=== PATIENT | male | born 1995 | race Caucasian/White ===

== ENCOUNTER → 2018-01-03 | Outpatient (CLI) | payer MEDICAID ==
[~2018-01-03] MED LIST: BUPIVACAINE MPF 0.25% 10 ML VIAL. ONE; IBUP-1027 PO; LIDOCAINE 1% PF 2 ML VIAL. ONE; PROPOFOL 20 ML IV ONE; methylPREDNISolone ACETATE 40 MG/ML VIAL. ONE; methylPREDNISolone ACETATE 80 MG/ML VIAL. ONE
--- NOTE | 2018-01-03 23:46 | PAIN ---
DATE OF SERVICE: 01/03/2018 INITIAL CONSULTATION FOR PAIN CLINIC CHIEF COMPLAINT: Left hip pain. HISTORY OF PRESENT ILLNESS: This is a 22-year-old male who presents with history of pain in the left hip as well as in the bilateral knees essentially since . The patient had a general hip dysplasia and had a spica cast from time of with several surgeries on his knees at about 1-year-old, additional surgeries later in life and a growth plate arrest attempted to right knee to try to equal the leg length. The patient has had severe pain in the left hip with weightbearing motion, standing, walking, especially climbing stairs, stepping up on a step, putting all his weight on his left leg with pain radiating to the left groin, as well as into the gluteus. The patient also has some tightness in the left gluteus and radiating to posterior thigh as well. The patient reports the pain is constant, throbbing, changes during the day with activity, aching, dull, shooting, sharp. The patient reports it awakens him from sleep, maybe once a night in the left side if he is lying on his left side. It does not affect his bowel or bladder control but significantly affects his ability to walk as is his knee pain. The patient has not been on any recent medications. He has been doing exercise. He also has had physical therapy, which was not helpful to decrease the pain in his hips and his knees as well. The patient rates his disability rate from 0 to 10, 10 being the worst, is 8 with family home responsibilities, recreation, social activity, 10 with occupation and 0 in all other categories. The patient reports no significant pain in the right side of the hip but mainly just the left. 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 PAST SURGICAL HISTORY: Previous surgeries include bilateral knee surgeries as a child as noted and hip dislocation on the left side in the past, which was closed reduction. CURRENT MEDICATIONS: Include only ibuprofen [id number] every 6 hours as needed for pain. FAMILY HISTORY: Significant for diabetes, heart disease, cancer and Alzheimer's. SOCIAL HISTORY: The patient does not drink alcohol; does not smoke and does not use any illegal, illicit or recreational drugs. He is single, lives at home with his mother who accompanies him this visit today in [place], [place]. RADIOLOGICAL DATA: The patient's x-ray of the hips showed severe deformity of the left hip with large acetabular shell for overriding and decreased size of his proximal femur, overall severe head deformity, well-maintained right hip joint space however. 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 REVIEW OF SYSTEMS: The patient's review of systems is positive for those items mentioned in history of present illness. All systems are reviewed and otherwise negative. It is complete, full and well documented on the patient's chart. PHYSICAL EXAMINATION: VITAL SIGNS: Today, the patient's blood pressure is 172/107, pulse is 57, respirations 18 and temperature 98.7 degrees Fahrenheit. Height 6 feet 1 inch and weight is 260 pounds. GENERAL: The patient is awake, alert, oriented, appropriate and very pleasant demeanor. The patient is accompanied by his mother. HEENT: Head shows normocephalic and atraumatic. The patient with porter and moustache. Extraocular movements are intact and symmetrical. Oral cavity: Mucous membranes are moist and pink. Dentition is intact. NECK: Shows anterior throat supple without palpable lymphadenopathy noted. Swallow reflex symmetrical. Neck shows full rotational motion of the cervical spine, both laterally as well as extension and flexion without difficulty. CHEST: Shows normal on inspection. Breath sounds clear to auscultation bilaterally. HEART: Shows S1 and S2 clear. No murmurs auscultated. ABDOMEN: Soft, nontender and nondistended. No palpable organomegaly is noted. No rebound or guarding demonstrated. BACK: Shows spine grossly in the midline. Slight exaggeration of the thoracic kyphosis and some mild flattening of the lumbar lordotic curvature. Lumbar paraspinous muscle shows symmetrical on inspection, on palpation shows moderate tenderness but only diffusely in the low lumbar distribution. No significant tenderness over the sacroiliac regions or the spinous processes or the sacrum. The patient has good rotational motion of the lumbar spine, both laterally greater than 10 degrees, right and left as well as extension greater than 10 degrees, forward flexed at 45 degrees without significant pain reported. EXTREMITIES: Lower extremities show deep tendon reflexes at 1+ in the patellar and tendo-calcaneus tendons. Motor exam is approximately 4 on a scale of 5 with dorsiflexion and extension but equal and symmetrical. Peripheral pulses are 1+ posterior tibia. No peripheral edema is noted bilaterally. Lower extremities are warm and dry to touch, equal in color and appearance. The patient has some surgical scarring noted on the knees as well as on the left lateral thigh. The patient's ability to stand is good with help from the arms of the chair. The patient has had significant antalgic gait, appears to limp and favor the left lower extremity significantly, not using any assistive devices to ambulate. The patient's skin shows warm and dry, good turgor. No edema. No sores, rashes or bruising. IMPRESSION: 1. This is a 22-year-old male with left hip pain since , essentially with hip dysplasia and significant pain with degenerative changes as noted. 2. Plain films of the left hip as noted. 3. History of migraine headaches. PLAN: Options were discussed with the patient and the patient's mother in detail regarding conservative medical treatment, physical therapy, interventional techniques and he would like to pursue interventional techniques. His insurance provider will only approve him for intramuscular injections. The patient does have some tenderness in the left posterior gluteus consistent with trigger point area of tenderness but without significant radiation and he would like to proceed with a trigger point injection in that and we will proceed with that today. The patient would potentially benefit from Synvisc or Monovisc injection into the left intra-articular hip joint; however, with his current insurance provider, this is not covered nor is a cortisone injection, which he has had in the past without significant help and we did some extensive research with his insurance provider today and they will not cover an intraarticular injection. The patient does not want to pay for this out of pocket. We will go ahead with an intramuscular injection, trigger point injection of the left gluteus. Risks were discussed including but not limited to bleeding, infection, possibility of intravascular injection sequelae, spread of local anesthetic and numbness, side effects of steroid medication and poor results regarding pain control. The patient understands and wished to proceed. The patient will return to the clinic in approximately 2 weeks for followup, was counseled as to return appointment, activity level and side effects to be aware of. The patient will also follow up with his orthopedist as scheduled. DIAGNOSIS: Myofascial pain, left gluteus. PROCEDURE: Trigger point injection, left gluteus under sterile prep and drape using local anesthetic. MEDICATION INJECTED: A total of 120 mg Depo-Medrol plus 3 mL of 0.25% bupivacaine after negative aspiration. CONDITION AT DISCHARGE: Stable. The patient tolerated the procedure well and had no complications. ABRAHAM MUÑOZ MD DR: XIANG/rex JOB#: [id number] / [id number]
== END | disposition home or self-care (01) ==
LOC: PNCL 09:38
PROVIDERS: ATTEND Anesthesiology
DX: M79.18 Myalgia, other site (principal); G43.909 Migraine, unspecified, not intractable, without status migrainosus; M17.0 Bilateral primary osteoarthritis of knee; M16.0 Bilateral primary osteoarthritis of hip; Z98.890 Other specified postprocedural states; Z79.899 Other long term (current) drug therapy; Z83.3 Family history of diabetes mellitus; Z82.49 Family history of ischemic heart disease and other diseases of the circulatory system; Z88.2 Allergy status to sulfonamides; Z88.1 Allergy status to other antibiotic agents; Z88.5 Allergy status to narcotic agent; Z91.040 Latex allergy status
CPT/HCPCS: 20552; J1030; J1040; J2704; J3490